=== PATIENT | male | born 1985 | race Caucasian/White ===

== ENCOUNTER 2019-11-29 14:15 | Emergency (ER) | payer BC, SELFPAY ==
[2019-11-29] MEDS ORDERED: NA CHLORIDE 0.9% 500 ML ONE (14:56)
[2019-11-29] MEDS ORDERED: ONDANSETRON 4 MG/2 ML VIAL ONE (14:56)
[2019-11-29] MEDS ORDERED: KETOROLAC 30 MG/ML INJ ONE (14:56)
[2019-11-29 15:03] LABS: Absolute Lymphocytes (CBC) 3.8 K/uL (0.7-4.9); Basophils % 0.9 % (0-1.3); Hematocrit 43.9 % (39.6-49.0); Lymphocytes % 44.1 % (15.3-44.8); MPV 8.7 fL (7.6-11.3); RBC Red Blood Cell Count 5.03 M/uL (4.33-5.43)
--- NOTE | 2019-11-29 15:12 | RAD REPORT ---
EXAM DESCRIPTION: CT - Stone Protocol - 11/29/2019 3:02 pm CLINICAL HISTORY: Abdominal pain. COMPARISON: None. TECHNIQUE: Computed axial tomography of the abdomen pelvis was obtained without oral or IV contrast. Lack of IV and oral contrast limits evaluation of solid organs, bowel, and vessels. Coronal reformat george images were obtained and reviewed. All CT scans are performed using dose optimization technique as appropriate and may include automated exposure control or mA/KV adjustment according to patient size. FINDINGS: 2 millimeter nonobstructing calculus left kidney. Tiny right renal calculus. Mild to moder ate left hydronephrosis. Left ureter is dilated. 6 millimeter calculus distal left ureter Hounsfield unit [id number] The liver, spleen, pancreas and adrenals appear grossly normal There is no evidence of diverticulitis. The appendix appears normal IMPRESSION: A 6 millimeter calculus distal left ureter resulting in mild to moderate left hydronephr osis
[2019-11-29 15:17] LABS: Potassium 3.2 mmol/L (3.5-5.1)
[2019-11-29 15:54] LABS: Urine Blood 3+ (NEG); Urine Glucose NEGATIVE (NEG); Urine Protein 2+ (NEG); Urine Specific Gravity 1.025 (1.005-1.030)
[2019-11-29] MEDS ORDERED: POTASSIUM CL SA 10 MEQ TAB PO ONE (16:14)
[2019-11-29 16:15] LABS: Urine Bacteria <20 /HPF (NONE SEEN); Urine Culture Reflex Order NOT NEEDED
--- NOTE | 2019-11-29 16:16 | EDPHYS ---
Physician Documentation [facility] Name: Tk Pitt Age: 34 yrs Sex: Male : 1985 Arrival Date: 11/29/2019 Time: 14:18 Bed 2 Private MD: ED Physician Tk Zelaya HPI: 11/28 15:14 This 34 yrs old Male presents to ER via Ambulatory with complaints of jr8 Possible Kidney Stone. 15:14 The patient complains of pain in the left flank. The pain radiates to the abdomen. jr8 Onset: The symptoms/episode began/occurred acutely, today. Modifying factors: The symptoms are alleviated by nothing. the symptoms are aggravated by nothing. Associated signs and symptoms: Pertinent positives: nausea, vomiting. Severity of pain: At its worst the pain was moderate in the emergency department the pain is unchanged. The patient has not experienced similar symptoms in the past. The patient has been recently seen by a physician:. Patient stated that he had some burning with urination a little over a week ago. Had telemedicine visit and was given medication for suspected UTI. Stated that he took home urine test which showed UTI present. Stated that today had sudden onset severe left back pain radiating to abdomen . Historical: - Allergies: 14:35 No Known Allergies; ca1 - Home Meds: 14:35 None [Active]; ca1 - PMHx: 14:35 None; ca1 - PSHx: 14:35 None; ca1 - Immunization history:: Adult Immunizations up to date. - Social history:: Smoking status: Patient reports the use of cigarette tobacco products. ROS: 15:14 Eyes: Negative for injury, pain, redness, and discharge, ENT: Negative for injury, jr8 pain, and discharge, Neck: Negative for injury, pain, and swelling, Cardiovascular: Negative for chest pain, palpitations, and edema, Respiratory: Negative for shortness of breath, cough, wheezing, and pleuritic chest pain, MS/Extremity: Negative for injury and deformity, Skin: Negative for injury, rash, and discoloration, Neuro: Negative for headache, weakness, numbness, tingling, and seizure. 15:14 Abdomen/GI: Positive for abdominal pain, nausea and vomiting, Negative for diarrhea, constipation, abdominal cramps, abdominal distension. 15:14 Back: Positive for pain at rest, pain with movement, flank pain, on the left. Exam: 15:14 Eyes: Pupils equal round and reactive to light, extra-ocular motions intact. Lids and jr8 lashes normal. Conjunctiva and sclera are non-icteric and not injected. Cornea within normal limits. Periorbital areas with no swelling, redness, or edema. ENT: Nares patent. No nasal discharge, no septal abnormalities noted. Tympanic membranes are normal and external auditory canals are clear. Oropharynx with no redness, swelling, or masses, exudates, or evidence of obstruction, uvula midline. Mucous membranes moist. Neck: Trachea midline, no thyromegaly or masses palpated, and no cervical lymphadenopathy. Supple, full range of motion without nuchal rigidity, or vertebral point tenderness. No Meningismus. 15:14 Cardiovascular: Regular rate and rhythm with a normal S1 and S2. No gallops, murmurs, or rubs. Normal PMI, no JVD. No pulse deficits. Respiratory: Lungs have equal breath sounds bilaterally, clear to auscultation and percussion. No rales, rhonchi or wheezes noted. No increased work of breathing, no retractions or nasal flaring. MS/ Extremity: Pulses equal, no cyanosis. Neurovascular intact. Full, normal range of motion. Neuro: Awake and alert, GCS 15, oriented to person, place, time, and situation. Cranial nerves II-XII grossly intact. Motor strength 5/5 in all extremities. Sensory grossly intact. Cerebellar exam normal. Normal gait. 15:14 Constitutional: The patient appears alert, awake, diaphoretic, in obvious distress, moderately distressed, in obvious pain, pale. 15:14 Abdomen/GI: Inspection: abdomen appears normal, Bowel sounds: active, all quadrants, Palpation: soft, in all quadrants, nontender, in the right upper quadrant and right lower quadrant, mild abdominal tenderness, in the anterior aspect of left lateral abdomen and left lower quadrant, mass, is not appreciated, rebound tenderness, is not appreciated, voluntary guarding, is not appreciated, involuntary guarding, is not appreciated, no appreciated organomegaly, Indicators: McBurney's point is not tender, Alba's sign is negative, Rovsing's sign is negative, Liver: tenderness, is not appreciated. 15:14 Back: pain, that is moderate, of the left flank, CVA tenderness, that is mild, is noted on the left. Vital Signs: 14:32 BP 144 / 81; Pulse 107; Resp 16 S; Temp 97.4(TE); Pulse Ox 99% on R/A; Weight 86.18 kg ca1 (R); Height 6 ft. 2 in. (187.96 cm) (R); Pain 10/10; 15:08 BP 121 / 67; Pulse 79; Resp 16 S; Pulse Ox 100% on R/A; jl7 16:12 BP 115 / 78; Pulse 92; Resp 16; Pulse Ox 98% ; jl7 14:32 Body Mass Index 24.39 (86.18 kg, 187.96 cm) ca1 MDM: 14:53 Patient medically screened. [facility] 16:14 Data reviewed: vital signs, nurses notes, lab test result(s), radiologic studies, CT jr8 scan. Data interpreted: Pulse oximetry: on room air is 98 %. Interpretation: normal. Counseling: I had a detailed discussion with the patient and/or guardian regarding: the historical points, exam findings, and any diagnostic results supporting the discharge/admit diagnosis, lab results, radiology results, the need for outpatient follow up, a urologist, to return to the emergency department if symptoms worsen or persist or if there are any questions or concerns that arise at home. Response to treatment: the patient's symptoms have markedly improved after treatment. ED course: Patient has been able to urinate. Non toxic. Pain under control. Will send home on PO medications. Knows to come back if worse. Otherwise to f/u with urology . 16:16 ED course: [employer] website accessed and without concern for abuse . 11/28 14:48 Order name: Urine Microscopic Only; Complete Time: 16:16 11/28 14:48 Order name: CBC with Diff; Complete Time: 15:11 11/28 14:48 Order name: CT Stone Protocol; Complete Time: 15:16 11/28 14:48 Order name: Basic Metabolic Panel; Complete Time: 15:20 11/28 15:48 Order name: Urine Dipstick--Ancillary (enter results); Complete Time: 16:04 em1 11/28 14:48 Order name: Urine Dipstick-Ancillary (obtain specimen); Complete Time: 15:46 jl7 Administered Medications: 14:53 Drug: Zofran (Ondansetron) 4 mg Route: IVP; Site: left antecubital; jl7 15:09 Follow up: Response: No adverse reaction; Nausea is decreased jl7 14:53 Drug: NS 0.9% 500 ml Route: IV; Rate: bolus; Site: left antecubital; jl7 14:54 Drug: TORadol - Ketorolac 15 mg Route: IVP; Site: left antecubital; jl7 15:09 Follow up: Response: No adverse reaction; Pain is decreased jl7 16:11 Drug: Potassium Chloride 40 mEq Route: PO; jl7 16:20 Follow up: Response: No adverse reaction jl7 16:18 Drug: Dilaudid 0.5 mg Route: IVP; Site: left antecubital; jl7 16:23 Follow up: Response: No adverse reaction; Pain is decreased jl7 Disposition: 11/29 09:10 Co-signature as Attending Physician, Tk Zelaya MD I agree with the assessment and kdr plan of care. Disposition: 11/29/19 16:15 Discharged to Home. Impression: Hydronephrosis with renal and ureteral calculous obstruction. - Condition is Stable. - Discharge Instructions: Kidney Stones, Hydronephrosis. - Prescriptions for Tylenol- Codeine #3 300-30 mg Oral Tablet - take 2 tablet by ORAL route every 6 hours As needed; 30 tablet. Zofran 4 mg Oral Tablet - take 1 tablet by ORAL route every 12 hours As needed; 20 tablet. Flomax 0.4 mg Oral Capsule, Sust. Release 24 hr - take 1 capsule by ORAL route once daily 1/2 hour following the same meal each day; 30 capsule. - Medication Reconciliation Form, Thank You Letter, Antibiotic Education, Prescription Opioid Use form. - Follow up: Kenton Martin MD; When: 2 - 3 days; Reason: Recheck today's complaints, Continuance of care, Re-evaluation by your physician. - Problem is new. - Symptoms have improved. Signatures: Dispatcher [employer] EDTk Mac MD MD kdr Roszak, Josh, PA PA jr8 Joselin Shearer RN RN jl7 Nury Roberts RN RN ca1 Corrections: (The following items were deleted from the chart) 11/28 16:31 16:15 11/29/2019 16:15 Discharged to Home. Impression: Hydronephrosis with renal and jl7 ureteral calculous obstruction. Condition is Stable. Forms are Medication Reconciliation Form, Thank You Letter, Antibiotic Education, Prescription Opioid Use. Follow up: Kenton Martin; When: 2 - 3 days; Reason: Recheck today's complaints, Continuance of care, Re-evaluation by your physician. Problem is new. Symptoms have improved. jr8
--- NOTE | 2019-11-29 16:16 | ER ---
Nurse's Notes [facility] Name: Tk Pitt Age: 34 yrs Sex: Male : 1985 Arrival Date: 11/29/2019 Time: 14:18 Bed 2 Private MD: Diagnosis: Hydronephrosis with renal and ureteral calculous obstruction Presentation: 11/28 14:32 Chief complaint: Patient states: L lower back pain radiating to testicles started an ca1 hour ago. Reports burning with urination, urgency and frequency. Reports nausea. Pt actively vomiting in triage. Denies hx of kidney stones. Coronavirus screen: Proceed with normal triage. Patient denies a cough. Patient denies shortness of breath or difficulty breathing. Patient denies measured and/or subjective temperature greater than 100.4F prior to today's visit. Patient denies travel on a cruise ship or to a country the [facility] currently lists as an affected area. Patient denies contact with known and/or suspected case of COVID-19. Ebola Screen: Patient negative for fever greater than or equal to 101.5 degrees Fahrenheit, and additional compatible Ebola Virus Disease symptoms Patient denies exposure to infectious person. Patient denies travel to an Ebola-affected area in the 21 days before illness onset. No symptoms or risks identified at this time. Initial Sepsis Screen: Does the patient meet any 2 criteria? No. Patient's initial sepsis screen is negative. Does the patient have a suspected source of infection? No. Patient's initial sepsis screen is negative. Risk Assessment: Do you want to hurt yourself or someone else? Patient reports no desire to harm self or others. Onset of symptoms was November 29, 2019. 14:32 Method Of Arrival: Ambulatory ca1 14:32 Acuity: ENRRIQUE 2 ca1 Historical: - Allergies: 14:35 No Known Allergies; ca1 - Home Meds: 14:35 None [Active]; ca1 - PMHx: 14:35 None; ca1 - PSHx: 14:35 None; ca1 - Immunization history:: Adult Immunizations up to date. - Social history:: Smoking status: Patient reports the use of cigarette tobacco products. Screenin:00 Abuse screen: Denies threats or abuse. Denies injuries from another. Nutritional jl7 screening: No deficits noted. Tuberculosis screening: No symptoms or risk factors identified. Fall Risk IV access (20 points). Total Jamil Fall Scale indicates No Risk (0-24 pts). Assessment: 14:44 General: Appears in no apparent distress. uncomfortable, Behavior is cooperative, jl7 anxious. Pain: Complains of pain in left flank Pain radiates to pelvis Pain currently is 10 out of 10 on a pain scale. Pain began 3 weeks ago. Neuro: Level of Consciousness is awake, alert, obeys commands, Oriented to person, place, time, situation. Cardiovascular: Denies chest pain. Respiratory: Airway is patent Respiratory effort is even, unlabored, Respiratory pattern is symmetrical, tachypnea. GI: Bowel sounds present X 4 quads. Abd is soft and non tender. : Reports burning with urination, urgency, urinary frequency. Derm: Skin is diaphoretic, Skin is pale, Skin temperature is cool. 15:08 Reassessment: Pt reports decreased pain at this time. jl7 16:13 Reassessment: Patient appears in no apparent distress at this time. Patient and/or jl7 family updated on plan of care and expected duration. Pain level reassessed. Patient is alert, oriented x 3, equal unlabored respirations, skin warm/dry/pink. Pt reports increasing left flank pain, ERP notified, see MAR for orders. Vital Signs: 14:32 BP 144 / 81; Pulse 107; Resp 16 S; Temp 97.4(TE); Pulse Ox 99% on R/A; Weight 86.18 kg ca1 (R); Height 6 ft. 2 in. (187.96 cm) (R); Pain 10/10; 15:08 BP 121 / 67; Pulse 79; Resp 16 S; Pulse Ox 100% on R/A; jl7 16:12 BP 115 / 78; Pulse 92; Resp 16; Pulse Ox 98% ; jl7 14:32 Body Mass Index 24.39 (86.18 kg, 187.96 cm) ca1 ED Course: 14:18 Patient arrived in ED. as 14:35 Triage completed. ca1 14:35 Arm band placed on right wrist. ca1 14:37 Joselin Shearer, CHRIS is Primary Nurse. jl7 14:53 Rickey Nick PA is PHCP. jr8 14:53 Tk Zelaya MD is Attending Physician. jr8 15:00 Patient has correct armband on for positive identification. Bed in low position. Call jl7 light in reach. Side rails up X 1. Pulse ox on. NIBP on. 15:00 Initial lab(s) drawn, by me, sent to lab. Inserted saline lock: 20 gauge in left jl7 antecubital area, using aseptic technique. Blood collected. 15:02 CT Stone Protocol In Process Unspecified. EDMS 16:15 Kenton Martin MD is Referral Physician. jr8 16:30 No provider procedures requiring assistance completed. IV discontinued, intact, jl7 bleeding controlled, No redness/swelling at site. Pressure dressing applied. Administered Medications: 14:53 Drug: Zofran (Ondansetron) 4 mg Route: IVP; Site: left antecubital; jl7 15:09 Follow up: Response: No adverse reaction; Nausea is decreased jl7 14:53 Drug: NS 0.9% 500 ml Route: IV; Rate: bolus; Site: left antecubital; jl7 14:54 Drug: TORadol - Ketorolac 15 mg Route: IVP; Site: left antecubital; jl7 15:09 Follow up: Response: No adverse reaction; Pain is decreased jl7 16:11 Drug: Potassium Chloride 40 mEq Route: PO; jl7 16:20 Follow up: Response: No adverse reaction jl7 16:18 Drug: Dilaudid 0.5 mg Route: IVP; Site: left antecubital; jl7 16:23 Follow up: Response: No adverse reaction; Pain is decreased jl7 Outcome: 16:15 Discharge ordered by . jr8 16:30 Discharged to home ambulatory. jl7 16:30 Condition: stable 16:30 Discharge instructions given to patient, Instructed on discharge instructions, follow up and referral plans. medication usage, Demonstrated understanding of instructions, follow-up care, medications, Prescriptions given X 3. 16:31 Patient left the ED. jl7 Signatures: Dispatcher [employer] EDRain Cornelius Josh, PA PA jr8 Joselin Shearer, CHRIS RN jl7 Nury Roberts RN RN ca1
[2019-11-29] MEDS ORDERED: HYDROMORPHONE HCL 0.5 MG/0.5 ML INJ ONE (16:22)
[2019-11-29 16:45] VITALS: TEMP 97.4
[2019-11-29 16:47] VITALS: BP 115/78; O2SAT 98
== END 2019-11-29 16:31 | disposition home or self-care (01) ==
LOC: ER 14:15
DX: N13.2 Hydronephrosis with renal and ureteral calculous obstruction (principal); Z72.0 Tobacco use
CPT/HCPCS: 85025; 80048; 36415; 76377; 74176; 96375; 96374; 99284; J1170; J7040; J2405; 81003; 81015